=== PATIENT | male | born 1950 | race Caucasian/White ===

== ENCOUNTER 2016-12-07 12:32 | Emergency (ER) | payer OTHER ==
[2016-12-07 13:17] LABS: HEMOGLOBIN 16.9 gm/dl (14.0-17.5); RED BLOOD COUNT 5.22 M/UL (4.20-5.50); WHITE BLOOD COUNT 8.2 K/UL (4.5-11.0)
[2016-12-07 13:39] LABS: BUN/CREATININE RATIO 13 (0-10)
== END 2016-12-07 21:30 | disposition home or self-care (01) ==
LOC: ER1 12:32
PROVIDERS: Emergency Medicine
DX: R10.9 Unspecified abdominal pain (principal); R11.0 Nausea; E11.9 Type 2 diabetes mellitus without complications; I10 Essential (primary) hypertension; Z90.49 Acquired absence of other specified parts of digestive tract; Z79.84 Long term (current) use of oral hypoglycemic drugs; Z79.899 Other long term (current) drug therapy
CPT/HCPCS: 36415; 71010; 80053; 82150; 82550; 82553; 83690; 83874; 84484; 85025; 93005; 96361; 96372; 96374; 96375; 96376; 99284; J2270; J7050; Q9962

== ENCOUNTER → 2020-12-30 | Outpatient (CLI) | payer MEDICAID | LOC: RAD 14:26 | DX: M25.562 Pain in left knee (principal); M54.5 Low back pain; M17.12 Unilateral primary osteoarthritis, left knee; M51.37 Other intervertebral disc degeneration, lumbosacral region; M43.17 Spondylolisthesis, lumbosacral region | CPT/HCPCS: 72110; 73564 ==

== ENCOUNTER → 2021-07-11 | Outpatient (CLI) | payer MEDICARE, OTHER | LOC: KOH-I 06-27 11:15 | DX: M54.16 Radiculopathy, lumbar region (principal); M43.17 Spondylolisthesis, lumbosacral region; M48.061 Spinal stenosis, lumbar region without neurogenic claudication | CPT/HCPCS: 72148 ==